=== PATIENT | female | born 1955 | race Caucasian/White ===

== ENCOUNTER 2018-01-07 10:16 | Emergency (ER) | payer OTHER ==
[~2018-01-07] VITALS: Ht 162.6 cm; Wt 63.5 kg
[~2018-01-07 10:16] MED LIST: ADVAIR 250-501 EACH; ALBUTEROL2.5 MG/31 INH; ALEVE220 MG PO; ANTI-GAS180 MG PO; ANUSOL-HC30 GM TOP; ASPIR 8181 MG PO; B-100 COMPLEX1 EAC1 PO; B12INJ; BENTYL 20 MG TA20 M1 PO; CALCIUM 500 WI1 EAC3; CALCIUM 500 WI1 EAC4 PO; CIPRO500 MG PO; CIPROFLOXACIN500 M1 PO; COLACE100 MG PO; CYCLOBENZAPRINE10 MG PO; DOXYCYCLINE 10100 MG PO; FENTANYL PA50 MCG/HR TRANSDERM; FLAGYL500 MG PO; FOSAMAX 70 MG T70 MG PO; FOSAMAX5 MG PO; HYDROCODONE-AP1 EAC6 PO; IBUPROFEN 800800 M1 PO; IBUPROFEN 800800 MG PO; LACTULOSE; LEVOTHYROXINE100 MC1 PO; LIPITOR40 MG PO; MILK OF MA2400 MG/10 PO; MIRALAX17 GM PO; MULTIVITAMINS PO; NICOTINE TRANSD14 M1 TRANSDERM; NOHOMEMEDICATIONS; OXYCODONE HCL10 MG PO; OXYCONTIN CR 1010 M1 PO; PHENERGAN-CODE120 ML PO; PRILOSEC 20 MG20 MG PO; PRINIVIL20 MG PO; PROTONIX40 M1 PO; PROTONIX40 M3 PO; PYRIDIUM200 MG PO; RANITIDINE 150150 M1; SENNA PO; SPIRIVA INH; SYMBICORT160 MCG/4. INH; VALTREX 500 MG500 M1; VENTOLIN HFA INH8 GM INH; VITAMIN B-12500 MCG PO; VITAMIN D-32000 UNIT PO; ZOFRAN ODT4 MG PO
[2018-01-07 10:43] LABS: ABSOLUTE LYMPHOCYTES 0.7 thou/uL (0.8-5.3); ABSOLUTE MONOCYTES 0.3 thou/uL (0.0-1.2); ABSOLUTE NEUTROPHILS 5.6 thou/uL (1.6-8.1); BASOPHILS 0.4 %; EOSINOPHILS 0.3 %; HEMOGLOBIN 12.7 gm/dL (12.0-15.0); LYMPHOCYTES 10.8 %; MCH 29.6 pg (26.0-34.0); MCHC 33.3 g/dL (28.0-37.0); MCV 88.9 fL (80.0-100.0); MONOCYTES 4.5 %; MPV 9.3 fl. (7.2-11.1); NUCLEATED RBCS 0 /100WBC; PLATELET COUNT* 146 thou/uL (150-400); RBC 4.27 mil/uL (4.20-5.00); RDW-CV 14.7 % (10.5-14.5); WBC 6.7 thou/uL (4.0-11.0)
[2018-01-07 10:49] LABS: ANION GAP 10 mmol/L (7-16); BUN 14 mg/dL (7-18); CALCIUM 9.5 mg/dL (8.5-10.1); CHLORIDE 106 mmol/L (98-107); CO2 24 mmol/L (21-32); CREATININE 0.7 mg/dL (0.6-1.3); GLUCOSE 132 mg/dL (70-99); POTASSIUM 3.3 mmol/L (3.5-5.1); SODIUM 140 mmol/L (136-145)
[2018-01-07 10:54] LABS: PROTIME 10.2 Seconds (9.20-11.50)
[2018-01-07 11:00] LABS: ALKALINE PHOSPHATASE 20 U/L (46-116); LIPASE 60 U/L (73-393); NT-PRO BRAIN NAT PEPTIDE 170 pg/mL (<300); SGOT 21 U/L (15-37); SGPT 31 U/L (30-65); TOTAL BILIRUBIN 0.4 mg/dL (<0.1-1.0); TOTAL PROTEIN 6.9 g/dL (6.4-8.2); TROPONIN-I LEVEL <0.06 ng/mL (<0.06)
[2018-01-07] MEDS ORDERED: MEDROL DOSPAK21 TA1 PO (11:19)
[2018-01-07 11:37] VITALS: BP 132/71
--- NOTE | 2018-01-08 09:32 | EKG ---
[place] [address] ELECTROCARDIOGRAM REPORT Name: TIO COLEMAN Room: [facility]#: [id number] Admission: 01/07/18 Attend Phys: Discharge: 01/07/18 Date of : 51 Report #: [id number] THIS REPORT FOR: //name// [facility] ED Test Date: 2018-01-07 Test Time: 10:28:26 Pat Name: TIO COLEMAN Department: Room: Gender: F Technical Support Analyst: X : 1955 Requested By: Larry Hill Order Number: [id number] MD: Emiliano Sinha Measurements Intervals [place] Rate: 97 P: 54 [place]: 161 QRS: 22 QRSD: 83 T: 11 QT: 344 QTc: 437 Interpretive Statements Sinus rhythm Probable left atrial enlargement Compared to ECG 10/09/2016 20:41:27 No significant changes Electronically Signed On 01-08-2018 9:32:41 CDT by Emiliano Sinha [email or web address] <ELECTRONICALLY SIGNED> By: Emiliano Sinha MD, [facility] 01/08/18 0932 1028 1028 Emiliano Sinha MD, [facility] /EPI
== END 2018-01-07 11:37 | disposition home or self-care (01) ==
LOC: M.ERS 10:16
PROVIDERS: Emergency Medicine
DX: J44.1 Chronic obstructive pulmonary disease with (acute) exacerbation (principal); G62.9 Polyneuropathy, unspecified; Z90.710 Acquired absence of both cervix and uterus; Z90.49 Acquired absence of other specified parts of digestive tract; Z88.1 Allergy status to other antibiotic agents; Z91.041 Radiographic dye allergy status; Z88.5 Allergy status to narcotic agent; Z88.8 Allergy status to other drugs, medicaments and biological substances; Z87.891 Personal history of nicotine dependence

== ENCOUNTER 2018-04-30 16:57 | Emergency (ER) | payer OTHER ==
[~2018-04-30] VITALS: Ht 162.6 cm; Wt 65.3 kg
[~2018-04-30 16:57] MED LIST changes: +MEDROL DOSPAK21 TA1 PO
[2018-04-30] MEDS ORDERED: AZITHROMYCIN 2250 MG PO (17:06)
[2018-04-30] MEDS ORDERED: FLONASE 0.05%50 MCG NASAL (17:07)
[2018-04-30] MEDS ORDERED: TOPROL XL25 MG PO (17:08)
[2018-04-30] MEDS ORDERED: ZANTAC 150MG T150 MG PO (17:08)
[2018-04-30] MEDS ORDERED: RECLAST 55 MG/1002 IVPB (17:09)
[2018-04-30] MEDS ORDERED: VALTREX 500 MG500 MG PO (17:10)
[2018-04-30 17:29] LABS: ABSOLUTE BASOPHILS 0.1 thou/uL (0.0-0.2); ABSOLUTE EOSINOPHILS 0.1 thou/uL (0.0-0.7); ABSOLUTE LYMPHOCYTES 1.5 thou/uL (0.8-5.3); ABSOLUTE MONOCYTES 0.4 thou/uL (0.0-1.2); ABSOLUTE NEUTROPHILS 3.9 thou/uL (1.6-8.1); BASOPHILS 0.9 %; HEMATOCRIT 40.2 % (37.0-47.0); HEMOGLOBIN 13.2 gm/dL (12.0-15.0); LYMPHOCYTES 25.5 %; MCH 29.2 pg (26.0-34.0); MCV 88.8 fL (80.0-100.0); MONOCYTES 6.2 %; MPV 9.5 fl. (7.2-11.1); NUCLEATED RBCS 0 /100WBC; PLATELET COUNT* 149 thou/uL (150-400); POLYS 66.4 %; RBC 4.52 mil/uL (4.20-5.00); RDW-CV 14.3 % (10.5-14.5); WBC 5.9 thou/uL (4.0-11.0)
[2018-04-30 17:39] LABS: ANION GAP 9 mmol/L (7-16); APTT 24.8 Seconds (25.0-31.3); BUN 16 mg/dL (7-18); CALCIUM 9.4 mg/dL (8.5-10.1); CHLORIDE 104 mmol/L (98-107); CO2 27 mmol/L (21-32); CREATININE 0.7 mg/dL (0.6-1.3); GLUCOSE 89 mg/dL (70-99); POTASSIUM 3.9 mmol/L (3.5-5.1); SODIUM 140 mmol/L (136-145)
[2018-04-30 17:42] LABS: PCO2 29.6 mmHg (35.0-45.0); PO2 77.2 mmHg (75.0-100.0); pH 7.509 (7.340-7.450)
[2018-04-30 17:49] LABS: ALBUMIN 3.8 g/dL (3.4-5.0); ALKALINE PHOSPHATASE 23 U/L (46-116); LIPASE 80 U/L (73-393); MAGNESIUM 2.4 mg/dL (1.8-2.4); NT-PRO BRAIN NAT PEPTIDE 178 pg/mL (<300); SGOT 25 U/L (15-37); SGPT 38 U/L (30-65); TOTAL BILIRUBIN 0.5 mg/dL (<0.1-1.0); TOTAL PROTEIN 6.8 g/dL (6.4-8.2); TROPONIN-I LEVEL <0.06 ng/mL (<0.06)
[2018-04-30] MEDS ORDERED: PREDNISONE50 MG PO (18:19)
[2018-04-30 18:45] VITALS: BP 110/90
--- NOTE | 2018-05-01 10:25 | EKG ---
[place] [address] ELECTROCARDIOGRAM REPORT Name: TIO COLEMAN Room: [facility]#: [id number] Admission: 04/30/18 Attend Phys: Discharge: 04/30/18 Date of : 51 Report #: [id number] THIS REPORT FOR: //name// [facility] ED Test Date: 2018-04-30 Test Time: 17:16:32 Pat Name: TIO BARRAZAJENY Department: Room: Gender: F Supervisor Mails: [facility] : 1955 Requested By: Brennon Do Order Number: [id number] MD: Emiliano Sinha Measurements Intervals [place] Rate: 71 P: 70 PA: 170 QRS: 37 QRSD: 81 T: 29 QT: 376 QTc: 409 Interpretive Statements Sinus rhythm Probable left atrial enlargement Baseline wander in lead(s) V3 Compared to ECG 01/07/2018 10:28:26 No significant changes Electronically Signed On 05-01-2018 10:24:51 CDT by Emiliano Sinha [email or web address] <ELECTRONICALLY SIGNED> By: Emiliano Sinha MD, [facility] 05/01/18 1024 1716 1716 Emiliano Sinha MD, [facility] /EPI
== END 2018-04-30 18:47 | disposition home or self-care (01) ==
LOC: M.ERS 16:57
PROVIDERS: Emergency Medicine Emergency Medical Services
DX: J44.1 Chronic obstructive pulmonary disease with (acute) exacerbation (principal); Z90.49 Acquired absence of other specified parts of digestive tract; Z90.710 Acquired absence of both cervix and uterus; Z87.891 Personal history of nicotine dependence; Z88.5 Allergy status to narcotic agent; Z88.1 Allergy status to other antibiotic agents; Z91.041 Radiographic dye allergy status

== ENCOUNTER 2018-07-02 09:55 | Emergency (ER) | payer OTHER ==
[~2018-07-02] VITALS: Ht 167.6 cm; Wt 62.1 kg
[~2018-07-02 09:55] MED LIST changes: +AZITHROMYCIN 2250 MG PO; +FLONASE 0.05%50 MCG NASAL; +PREDNISONE50 MG PO; +RECLAST 55 MG/1002 IVPB; +TOPROL XL25 MG PO; +VALTREX 500 MG500 MG PO; +ZANTAC 150MG T150 MG PO
[2018-07-02 10:39] LABS: ABSOLUTE EOSINOPHILS 0.1 thou/uL (0.0-0.7); ABSOLUTE LYMPHOCYTES 1.1 thou/uL (0.8-5.3); ABSOLUTE MONOCYTES 0.3 thou/uL (0.0-1.2); BASOPHILS 0.7 %; EOSINOPHILS 1.3 %; HEMOGLOBIN 12.4 gm/dL (12.0-15.0); LYMPHOCYTES 24.4 %; MCH 29.8 pg (26.0-34.0); MCHC 33.5 g/dL (28.0-37.0); MCV 89.2 fL (80.0-100.0); MONOCYTES 7.4 %; MPV 8.7 fl. (7.2-11.1); NUCLEATED RBCS 0 /100WBC; PLATELET COUNT* 155 thou/uL (150-400); POLYS 66.2 %; RBC 4.15 mil/uL (4.20-5.00); RDW-CV 15.8 % (10.5-14.5); WBC 4.5 thou/uL (4.0-11.0)
[2018-07-02 10:49] LABS: ANION GAP 7 mmol/L (7-16); BUN 15 mg/dL (7-18); CHLORIDE 106 mmol/L (98-107); CO2 27 mmol/L (21-32); CREATININE 0.8 mg/dL (0.6-1.3); GLUCOSE 98 mg/dL (70-99); POTASSIUM 3.3 mmol/L (3.5-5.1); SODIUM 140 mmol/L (136-145)
[2018-07-02 11:01] LABS: ALBUMIN 3.9 g/dL (3.4-5.0); ALKALINE PHOSPHATASE 19 U/L (46-116); SGOT 19 U/L (15-37); SGPT 32 U/L (30-65); TOTAL BILIRUBIN 0.7 mg/dL (<0.1-1.0); TOTAL PROTEIN 6.8 g/dL (6.4-8.2); TROPONIN-I LEVEL <0.06 ng/mL (<0.06)
[2018-07-02 11:20] LABS: URINE BILIRUBIN NEGATIVE (Negative); URINE BLOOD NEGATIVE (Negative); URINE CLARITY CLEAR; URINE COLOR YELLOW; URINE GLUCOSE-RANDOM NEGATIVE (Negative); URINE KETONES NEGATIVE (Negative); URINE LEUKOCYTES-REFLEX NEGATIVE (Negative); URINE NITRITE-REFLEX NEGATIVE (Negative); URINE PROTEIN NEGATIVE (Negative); URINE UROBILINOGEN 0.2 E.U./dl (0.2-1.0)
[2018-07-02] MEDS ORDERED: PREDNISONE 20 M20 M1 PO (11:51)
[2018-07-02 12:01] VITALS: BP 128/57
--- NOTE | 2018-07-02 16:41 | EKG ---
[place] [address] ELECTROCARDIOGRAM REPORT Name: TIO COLEMAN Room: [facility]#: [id number] Admission: 07/02/18 Attend Phys: Discharge: 07/02/18 Date of : 51 Report #: [id number] THIS REPORT FOR: //name// [facility] ED Test Date: 2018-07-02 Test Time: 10:08:22 Pat Name: TIO COLEMAN Department: Room: Gender: F Real Estate Valuer: : 1955 Requested By: Era Chamorro Order Number: [id number] MD: Wiliam Law Measurements Intervals [place] Rate: 68 P: 54 [place]: 167 QRS: 30 QRSD: 84 T: 30 QT: 383 QTc: 408 Interpretive Statements Sinus rhythm Compared to ECG 04/30/2018 17:16:32 No significant changes Electronically Signed On 07-02-2018 16:40:56 CDT by Wiliam Law [email or web address] <ELECTRONICALLY SIGNED> By: Wiliam Law MD, [facility] 07/02/18 1640 D: 10/1007 07 Wiliam Law MD, [facility] /EPI
== END 2018-07-02 12:02 | disposition home or self-care (01) ==
LOC: M.ERS 09:55
PROVIDERS: Physician Assistant Surgical
DX: R06.02 Shortness of breath (principal); T37.0X5A Adverse effect of sulfonamides, initial encounter; J44.9 Chronic obstructive pulmonary disease, unspecified; Z90.710 Acquired absence of both cervix and uterus; Z88.6 Allergy status to analgesic agent; Z88.1 Allergy status to other antibiotic agents; Z88.2 Allergy status to sulfonamides; Z88.8 Allergy status to other drugs, medicaments and biological substances; Z91.041 Radiographic dye allergy status; Z90.49 Acquired absence of other specified parts of digestive tract; Z87.891 Personal history of nicotine dependence; Y92.89 Other specified places as the place of occurrence of the external cause

== ENCOUNTER 2018-09-03 15:15 | Emergency (ER) | payer OTHER ==
[~2018-09-03] VITALS: Ht 162.6 cm; Wt 63.5 kg
[~2018-09-03 15:15] MED LIST changes: +PREDNISONE 20 M20 M1 PO
[2018-09-03 15:40] LABS: ABSOLUTE EOSINOPHILS 0.1 thou/uL (0.0-0.7); ABSOLUTE LYMPHOCYTES 1.1 thou/uL (0.8-5.3); ABSOLUTE MONOCYTES 0.4 thou/uL (0.0-1.2); BASOPHILS 0.6 %; EOSINOPHILS 1.4 %; HEMATOCRIT 35.1 % (37.0-47.0); HEMOGLOBIN 11.9 gm/dL (12.0-15.0); LYMPHOCYTES 20.1 %; MCH 30.8 pg (26.0-34.0); MCV 90.5 fL (80.0-100.0); MONOCYTES 7.1 %; MPV 9.3 fl. (7.2-11.1); NUCLEATED RBCS 0 /100WBC; PLATELET COUNT* 159 thou/uL (150-400); POLYS 70.8 %; RBC 3.88 mil/uL (4.20-5.00); RDW-CV 14.2 % (10.5-14.5); WBC 5.7 thou/uL (4.0-11.0)
[2018-09-03 15:50] LABS: ANION GAP 10 mmol/L (7-16); BUN 17 mg/dL (7-18); CALCIUM 9.1 mg/dL (8.5-10.1); CHLORIDE 105 mmol/L (98-107); CO2 26 mmol/L (21-32); CREATININE 0.7 mg/dL (0.6-1.3); GLUCOSE 125 mg/dL (70-99); POTASSIUM 3.5 mmol/L (3.5-5.1); SODIUM 141 mmol/L (136-145)
[2018-09-03 15:51] LABS: APTT 24.7 Seconds (25.0-31.3)
[2018-09-03] MEDS ORDERED: ZPAK PO (15:56)
[2018-09-03] MEDS ORDERED: PREDNISONE 20 M20 M1 PO (15:56)
[2018-09-03 16:18] LABS: ALBUMIN 3.6 g/dL (3.4-5.0); ALKALINE PHOSPHATASE 16 U/L (46-116); CK-MB MASS 0.6 ng/mL (<0.5-3.6); LIPASE 70 U/L (73-393); MAGNESIUM 1.9 mg/dL (1.8-2.4); NT-PRO BRAIN NAT PEPTIDE 193 pg/mL (<300); SGOT 16 U/L (15-37); SGPT 26 U/L (30-65); TOTAL BILIRUBIN 0.4 mg/dL (<0.1-1.0); TOTAL PROTEIN 6.2 g/dL (6.4-8.2); TROPONIN-I LEVEL <0.06 ng/mL (<0.06)
[2018-09-03 16:55] VITALS: BP 133/53
--- NOTE | 2018-09-04 13:58 | EKG ---
[place] [address] ELECTROCARDIOGRAM REPORT Name: TIO COLEMAN Room: [facility]#: [id number] Admission: 09/03/18 Attend Phys: Discharge: 09/03/18 Date of : 51 Report #: [id number] THIS REPORT FOR: //name// [facility] ED Test Date: 2018-09-03 Test Time: 15:20:53 Pat Name: TIO COLEMAN Department: Room: Gender: F Svp: : 1955 Requested By: Rich Raines Order Number: [id number] MD: Sharath Adame Measurements Intervals [place] Rate: 73 P: 63 [place]: 171 QRS: 35 QRSD: 80 T: 34 QT: 384 QTc: 424 Interpretive Statements Sinus rhythm Compared to ECG 07/02/2018 10:08:22 No significant changes Electronically Signed On 09-04-2018 13:58:45 FILM REPRODUCER by Sharath Adame [email or web address] <ELECTRONICALLY SIGNED> By: Sharath Adame MD, [facility] 09/04/18 1358 1520 1520 Sharath Adame MD, [facility] /EPI
== END 2018-09-03 16:56 | disposition home or self-care (01) ==
LOC: M.ERS 15:15
PROVIDERS: Family Medicine
DX: J44.1 Chronic obstructive pulmonary disease with (acute) exacerbation (principal); G62.9 Polyneuropathy, unspecified; Z87.891 Personal history of nicotine dependence; Z88.1 Allergy status to other antibiotic agents; Z91.041 Radiographic dye allergy status; Z88.5 Allergy status to narcotic agent; Z88.8 Allergy status to other drugs, medicaments and biological substances; Z90.710 Acquired absence of both cervix and uterus; Z90.49 Acquired absence of other specified parts of digestive tract

== ENCOUNTER 2019-01-17 07:16 | Emergency (ER) | payer OTHER ==
[~2019-01-17] VITALS: Ht 162.6 cm; Wt 62.6 kg
[~2019-01-17 07:16] MED LIST changes: +ZPAK PO
[2019-01-17] MEDS ORDERED: EMU-LAC HYDRAT120 ML TOP (07:23)
[2019-01-17 07:46] LABS: ABSOLUTE EOSINOPHILS 0.1 thou/uL (0.0-0.7); ABSOLUTE LYMPHOCYTES 2.2 thou/uL (0.8-5.3); ABSOLUTE MONOCYTES 0.5 thou/uL (0.0-1.2); ABSOLUTE NEUTROPHILS 4.6 thou/uL (1.6-8.1); BASOPHILS 0.6 %; EOSINOPHILS 1.1 %; HEMATOCRIT 37.8 % (37.0-47.0); HEMOGLOBIN 12.8 gm/dL (12.0-15.0); LYMPHOCYTES 29.2 %; MCH 30.4 pg (26.0-34.0); MCHC 33.8 g/dL (28.0-37.0); MCV 89.7 fL (80.0-100.0); MONOCYTES 6.5 %; MPV 8.5 fl. (7.2-11.1); NUCLEATED RBCS 0 /100WBC; PLATELET COUNT* 205 thou/uL (150-400); POLYS 62.6 %; RBC 4.21 mil/uL (4.20-5.00); RDW-CV 19.1 % (10.5-14.5); WBC 7.4 thou/uL (4.0-11.0)
[2019-01-17 07:51] LABS: ANION GAP 11 mmol/L (7-16); BUN 14 mg/dL (7-18); CALCIUM 9.3 mg/dL (8.5-10.1); CHLORIDE 107 mmol/L (98-107); CO2 26 mmol/L (21-32); CREATININE 0.7 mg/dL (0.6-1.3); GLUCOSE 87 mg/dL (70-99); POTASSIUM 3.2 mmol/L (3.5-5.1); SODIUM 144 mmol/L (136-145)
[2019-01-17 07:58] LABS: PROTIME 10.7 Seconds (9.20-11.50)
[2019-01-17 08:02] LABS: ALBUMIN 3.7 g/dL (3.4-5.0); ALKALINE PHOSPHATASE 18 U/L (46-116); NT-PRO BRAIN NAT PEPTIDE 498 pg/mL (<300); SGOT 15 U/L (15-37); SGPT 33 U/L (30-65); TOTAL BILIRUBIN 0.4 mg/dL (<0.1-1.0); TOTAL PROTEIN 6.4 g/dL (6.4-8.2); TROPONIN-I LEVEL <0.06 ng/mL (<0.06)
[2019-01-17 08:15] LABS: BE 2.3 mmol/L (-2 to +3)
[2019-01-17] MEDS ORDERED: PREDNISONE50 MG PO (09:41)
[2019-01-17] MEDS ORDERED: IPRAT-ALBUT 0.5-3 ML INH ×2 (09:41→10:14)
[2019-01-17] MEDS ORDERED: PREDNISONE 20 M20 M1 PO (10:27)
[2019-01-17 10:33] VITALS: BP 125/87
--- NOTE | 2019-01-17 11:40 | EKG ---
[place] [address] ELECTROCARDIOGRAM REPORT Name: TIO COLEMAN Room: [facility]#: [id number] Admission: 01/17/19 Attend Phys: Discharge: 01/17/19 Date of : 51 Report #: [id number] THIS REPORT FOR: //name// [facility] ED Test Date: 2019-01-17 Test Time: 07:18:48 Pat Name: TIO VILLASEÑORJACKIE Department: Room: Gender: Metal Cnc Operator: Andrea LANDRY : 1955 Requested By: Ayesha Cavazos Order Number: [id number] MD: Emiliano Sinha Measurements Intervals [place] Rate: 67 P: 64 [place]: 160 QRS: 35 QRSD: 90 T: 26 QT: 385 QTc: 407 Interpretive Statements Sinus rhythm Compared to ECG 09/03/2018 15:20:53 No significant changes Electronically Signed On 01-17-2019 11:40:31 CDT by Emiliano Sinha [email or web address] <ELECTRONICALLY SIGNED> By: Emiliano Sinha MD, [facility] 01/17/19 1140 7 Emiliano Sinha MD, [facility] /EPI
--- NOTE | 2019-01-18 11:38 | EKG ---
[place] [address] ELECTROCARDIOGRAM REPORT Name: TIO COLEMAN Room: [facility]#: [id number] Admission: 01/17/19 Attend Phys: Discharge: 01/17/19 Date of : 51 Report #: [id number] THIS REPORT FOR: //name// [facility] ED Test Date: 2019-01-17 Test Time: 09:21:33 Pat Name: TIO COLEMAN Department: Room: Gender: Whip Sawyer: Andrea LANDRY : 1955 Requested By: Ayesha Cavazos Order Number: [id number] MD: Wiliam Law Measurements Intervals [place] Rate: 64 P: 64 [place]: 162 QRS: 37 QRSD: 94 T: 27 QT: 389 QTc: 402 Interpretive Statements Sinus rhythm Compared to ECG 01/17/2019 07:18:48 No significant changes Electronically Signed On 01-18-2019 11:38:02 CDT by Wiliam Law [email or web address] <ELECTRONICALLY SIGNED> By: Wiliam Law MD, [facility] 01/18/19 1138 0 0 Wiliam Law MD, [facility] /EPI
== END 2019-01-17 10:34 | disposition home or self-care (01) ==
LOC: M.ERS 07:16
PROVIDERS: Personal Emergency Response Attendant
DX: J44.1 Chronic obstructive pulmonary disease with (acute) exacerbation (principal); G62.9 Polyneuropathy, unspecified; Z90.710 Acquired absence of both cervix and uterus; Z90.49 Acquired absence of other specified parts of digestive tract; Z98.890 Other specified postprocedural states; Z87.891 Personal history of nicotine dependence; Z88.1 Allergy status to other antibiotic agents; Z88.2 Allergy status to sulfonamides; Z91.041 Radiographic dye allergy status; Z88.8 Allergy status to other drugs, medicaments and biological substances

== ENCOUNTER 2019-06-20 21:46 | Emergency (ER) | payer OTHER ==
[~2019-06-20] VITALS: Ht 162.6 cm; Wt 61.7 kg
[~2019-06-20 21:46] MED LIST changes: +EMU-LAC HYDRAT120 ML TOP; +IPRAT-ALBUT 0.5-3 ML INH
[2019-06-20] MEDS ORDERED: ARTIFICIAL TEAR1510 OPHTHALMIC (22:00)
[2019-06-20] MEDS ORDERED: ALLEGRA ALLERG180 MG PO (22:00)
[2019-06-20] MEDS ORDERED: MIRALAX119 GM PO (22:01)
[2019-06-20] MEDS ORDERED: LIDOCAINE 2%2 %/5 GM TOP (22:01)
[2019-06-20] MEDS ORDERED: VALACYCLOVIR500 MG PO (22:02)
[2019-06-20] MEDS ORDERED: FIBER0.4 GM PO (22:02)
[2019-06-20] MEDS ORDERED: VITAMIN D35000 UNIT PO (22:03)
[2019-06-20 22:56] LABS: ABSOLUTE EOSINOPHILS 0.1 thou/uL (0.0-0.7); ABSOLUTE LYMPHOCYTES 1.2 thou/uL (0.8-5.3); ABSOLUTE MONOCYTES 0.4 thou/uL (0.0-1.2); ABSOLUTE NEUTROPHILS 3.7 thou/uL (1.6-8.1); BASOPHILS 0.7 %; EOSINOPHILS 1.2 %; HEMATOCRIT 35.8 % (37.0-47.0); HEMOGLOBIN 12.4 gm/dL (12.0-15.0); LYMPHOCYTES 22.5 %; MCH 31.8 pg (26.0-34.0); MCHC 34.7 g/dL (28.0-37.0); MCV 91.7 fL (80.0-100.0); MONOCYTES 6.9 %; MPV 9.5 fl. (7.2-11.1); NUCLEATED RBCS 0 /100WBC; PLATELET COUNT* 147 thou/uL (150-400); POLYS 68.7 %; RBC 3.91 mil/uL (4.20-5.00); RDW-CV 14.5 % (10.5-14.5); WBC 5.4 thou/uL (4.0-11.0)
[2019-06-20 23:03] LABS: PROTIME 10.2 Seconds (9.20-11.50)
[2019-06-20 23:04] LABS: URINE CLARITY CLEAR; URINE COLOR ORANGE; URINE SPECIFIC GRAVITY 1.005 (1.005-1.030)
[2019-06-20 23:06] LABS: INFLUENZA A ANTIGEN Negative (Negative); INFLUENZA B ANTIGEN Negative (Negative)
[2019-06-20 23:10] LABS: URINE REDUCING SUBSTANCE NEGATIVE (Negative)
[2019-06-20 23:16] LABS: ICTOTEST (BILI CONFIRMATORY) Negative (Negative)
[2019-06-20 23:17] LABS: ACETEST (KETONE CONFIRMATORY) Negative (Negative)
[2019-06-20 23:19] LABS: CASTS None Seen /LPF (None Seen); MUCUS None Seen strn/LPF (None Seen); SQUAMOUS 0-3 Few /LPF (0-3); URINE RBC None Seen /HPF (0-2); URINE WBC-REFLEX 0-5 Rare /HPF (0-5)
[2019-06-20 23:20] LABS: BACTERIA-REFLEX None Seen /HPF (None Seen); CRYSTALS None Seen /LPF (None Seen)
[2019-06-20 23:23] LABS: CALCIUM 9.2 mg/dL (8.5-10.1); CREATININE 0.9 mg/dL (0.6-1.3); POTASSIUM 3.5 mmol/L (3.5-5.1)
[2019-06-20 23:33] LABS: ALBUMIN 3.8 g/dL (3.4-5.0); TOTAL BILIRUBIN 0.5 mg/dL (<0.1-1.0)
[2019-06-20] MEDS ORDERED: PREDNISONE50 MG PO (23:45)
[2019-06-21 00:01] VITALS: BP 107/62
--- NOTE | 2019-06-21 16:47 | EKG ---
[place] [address] ELECTROCARDIOGRAM REPORT Name: JAREDTIOANGELO TURCIOS Room: [facility]#: [id number] Admission: 06/20/19 Attend Phys: Discharge: 06/21/19 Date of : 51 Report #: [id number] THIS REPORT FOR: //name// [facility] ED Test Date: 2019-06-20 Test Time: 22:05:59 Pat Name: TIO COLEMAN Department: Room: Gender: F Manuscript Reader: [place] : 1955 Requested By: Jessenia Gasca Order Number: [id number] MD: Wiliam Law Measurements Intervals [place] Rate: 71 P: 72 [place]: 173 QRS: 34 QRSD: 85 T: 32 QT: 393 QTc: 428 Interpretive Statements Sinus rhythm Compared to ECG 01/17/2019 09:21:33 No significant changes Electronically Signed On 06-21-2019 16:47:34 CDT by Wiliam Law [email or web address] <ELECTRONICALLY SIGNED> By: Wiliam Law MD, [facility] 06/21/19 1647 04 04 Wiliam Law MD, [facility] /EPI
== END 2019-06-21 00:01 | disposition home or self-care (01) ==
LOC: M.ERS 21:46
PROVIDERS: Emergency Medicine
DX: J98.01 Acute bronchospasm (principal); J44.9 Chronic obstructive pulmonary disease, unspecified; G62.9 Polyneuropathy, unspecified; Z90.710 Acquired absence of both cervix and uterus; Z90.49 Acquired absence of other specified parts of digestive tract; Z90.89 Acquired absence of other organs; Z86.018 Personal history of other benign neoplasm; Z88.1 Allergy status to other antibiotic agents; Z88.5 Allergy status to narcotic agent; Z88.2 Allergy status to sulfonamides; Z88.8 Allergy status to other drugs, medicaments and biological substances; Z87.891 Personal history of nicotine dependence